=== PATIENT | male | born 1960 | race Caucasian/White ===

== ENCOUNTER 2017-08-18 18:04 | Emergency (ER) | payer OTHER ==
--- NOTE | ~2017-08-18 | ER ---
PATIENT'S NAME: QUYNH ABEL [facility] AGE: 57 Y [address] ROOM: [place] [id number] LOCATION: ED ADMIT DATE: 08/18/2017 ER/Outpatient Report DISCHARGE DATE: 08/18/2017 FAMILY PHYSICIAN: Michael Ramirez MD ATTENDING PHYSICIAN: Hafsa Noonan HISTORY OF PRESENT ILLNESS: This is a 57-year-old male who presents today with chief complaint of left lower leg pain. The patient says he has a history of blood clots in the lower extremities for which he has been on chronic anticoagulation. He initially told me Coumadin, but then we found out it was actually Xarelto. He is not very compliant with medications though and says sometimes he forgets to take them. He says that these blood clots were discovered maybe 10 years ago he thinks, but he has not gone back to get repeat ultrasounds. He denies any fever or chills. States that he just felt more tired today. His reports that he had some shallow breathing earlier, so that is why they were concerned. PAST MEDICAL HISTORY: Includes right leg ulcer currently wrapped, CHF, vhk-iqevqoa-mhrhmwlvy diabetes, history of DVT, hypercholesteremia. SURGICAL HISTORY: Right lower leg surgery. SOCIAL HISTORY: He does not smoke, drink, or use any drugs. MEDS: Please see med list. ALLERGIES: PLEASE SEE MED LIST. REVIEW OF SYSTEMS: Reviewed by me and negative with exception of those discussed in the HPI. PHYSICAL EXAMINATION: VITAL SIGNS: The patient is 6 feet tall, he weighs 152.7 kilos, blood pressure 141/70, heart rate 83, respiratory rate 18, temperature is 100.5, sats are 94% on room air. GENERAL: The patient does not appear in any acute distress. He is alert and interactive. He is speaking in full sentences. He does not appear lethargic to me. He does feel warm to touch. He does not appear acutely ill. HEENT: His pupils are equal and reactive to light. He has no facial PATIENT'S NAME: QUYNH ABEL [facility] AGE: 57 Y [address] ROOM: [place], [place] [address] LOCATION: ED ADMIT DATE: 08/18/2017 ER/Outpatient Report DISCHARGE DATE: 08/18/2017 FAMILY PHYSICIAN: Michael Ramirez MD ATTENDING PHYSICIAN: Hafsa Noonan tenderness. He has intact sensation of V1, V2, and V3 of the face. He has no lymphadenopathy. He has no C-spine tenderness. HEART: His heart rate is regular rate and rhythm. At this time, he is not tachycardic. He is mildly hypertensive at this time to 141/70 with good cap refill. LUNGS: His lung sounds are clear. He has no labored breathing, tachypnea, or accessory muscle use. ABDOMEN: Soft, nontender, nondistended. He is morbidly obese, but no ecchymoses. No epigastric tenderness. No right upper quadrant tenderness. No right lower quadrant tenderness or left lower quadrant tenderness. EXTREMITIES: He has chronic venous stasis changes on both lower extremities. On the left leg where he has the pain, he does not have any calf tenderness when we measure that compared to the right, it is about the same. It is not acutely swollen. He has like maybe trace pedal edema. He does have an area of redness that is tender and kind of warm to touch. It is not raised though. He has negative Homans sign bilaterally. SKIN: Area of erythema on the back of the left calf as noted above that is mildly tender on palpation, but no fluctuance or abscess seen. NEURO: He is A and O x3. Strength bilateral upper extremities 5/5, lower extremities 5/5. Cranial nerves 2 through 12 are intact. He is A and O x4 and answers questions appropriately. GCS is 15. EMERGENCY ROOM COURSE: The concern would be for blood clots, DVT in his left lower extremity. We checked CBC, renal panel, CMP, lactic, procalcitonin, coags. These show a lactic of 1.4, not elevated. CBC shows white count 11.5, H and H 16.1/47.6, and platelets are 287. He has no bandemia. PTT is 28, PT is 11.7, INR is 1.11. Sodium is 132, potassium 4.1, chloride 89, CO2 of 24, anion gap 13.1, glucose is 221, BUN is 14, creatinine is 1.0, GFR is 83. CRP is 13.4. Procalcitonin is 0.08. We did a DVT study which shows on the left lower extremity he has a distal common femoral vein DVT, and on the right, he has a common femoral vein DVT. Given that he also had been complaining of shortness of breath and his oxygen is anywhere from 91-94%, we did a PE CT angio chest to rule out PE study. He has no pulmonary embolism. He does have a dilated ascending aorta without dissection, cholelithiasis, and he has heterogeneity of the right inferior thyroid not well seen. This was discussed with the patient. He has no PE at this time, but he has bilateral DVTs, but does state that he is noncompliant with his Xarelto. I discussed this with Dr. Lorena hong for his primary care doctor who is Dr. Ramirez. The patient encouraged to take the Xarelto as appropriate. He is currently being anticoagulated. Unknown if these clots were there before, if they are extension of it. In any case, he needs to follow up with Dr. Ramirez. He currently feels well. He does not have any abnormal vital signs or any other red flags on history and physical exam, so we will be sending him home. No oxygen requirement. PATIENT'S NAME: QUYNH ABEL [facility] AGE: 57 Y [address] ROOM: [place] [address] LOCATION: [facility] ADMIT DATE: 08/18/2017 ER/Outpatient Report DISCHARGE DATE: 08/18/2017 FAMILY PHYSICIAN: Michael Ramirez MD ATTENDING PHYSICIAN: Hafsa Noonan IMPRESSION: Left lower leg pain, deep venous thrombosis. HAFSA NOONAN MD CANatasha/modl /[id number] d: 08/19/17 0429 t: 08/21/17 0510, OUTPATIENT REPORT
--- NOTE | ~2017-08-18 | ENPV ---
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 There is sub-acute deep vein thrombosis in the left distal femoral vein(s). Calf veins not well visualized bilaterally cannot rule out small calf thrombus. Procedure Type of Study: Veins:Lower Extremities DVT Study, Lower Extremity Left. Indications for Study:Swelling. Appropriate Use Criteria:9 Patient Status:STAT. Study Location:ER. Technical Quality:Limited visualization due to body habitus. Velocities are measured in cm/s ; Diameters are measured in cm Right Lower Extremities DVT Study Measurements Right 2D and Doppler Measurements + + + + +------+------+ + !Location !Visualized!Compressibility!Thrombosis!Signal!Reflux!Reflux ! ! ! ! ! ! ! !(sec) ! + + + + +------+------+ + !GSV Thigh !Yes !Yes !None ! ! ! ! + + + + +------+------+ + !Common !Yes !Partial !Sub-acute ! ! ! ! !Femoral ! ! ! ! ! ! ! + + + + +------+------+ + !Prox !Yes !Yes !None ! ! ! ! !Femoral ! ! ! ! ! ! ! + + + + +------+------+ + !Dist !Yes !Yes !None ! ! ! ! !Femoral ! ! ! ! ! ! ! + + + + +------+------+ + !Popliteal !Yes !Yes !None ! ! ! ! + + + + +------+------+ + !PTV !Yes !Yes !None ! ! ! ! + + + + +------+------+ + !Peroneal !Yes !Yes !None ! ! ! ! + + + + +------+------+ + Left Lower Extremities DVT Study Measurements Left 2D and Doppler Measurements + + + + +------+------+ + !Location !Visualized!Compressibility!Thrombosis!Signal!Reflux!Reflux ! ! ! ! ! ! ! !(sec) ! + + + + +------+------+ + !GSV Thigh !Yes !Yes !None ! ! ! ! + + + + +------+------+ + !Common !Yes !Yes !None ! ! ! ! !Femoral ! ! ! ! ! ! ! + + + + +------+------+ + !Prox !Yes !Yes !None ! ! ! ! !Femoral ! ! ! ! ! ! ! + + + + +------+------+ + !Mid Femoral!Yes !Yes !None ! ! ! ! + + + + +------+------+ + !Dist !Yes !Partial !Sub-acute ! ! ! ! !Femoral ! ! ! ! ! ! ! + + + + +------+------+ + !Popliteal !Yes !Yes !None ! ! ! ! + + + + +------+------+ + !Gastroc !Yes ! ! ! ! ! ! + + + + +------+------+ + !PTV !Yes !Yes !None ! ! ! ! + + + + +------+------+ + !Peroneal !Yes !Yes !None ! ! ! ! + + + + +------+------+ + Signature dtt: SARAH GUARDADO dtd: 08/18/17 1914 Physician Self Edit
[~2017-08-18 18:04] MED LIST: ATORVASTATIN CA10 MG; COUMADIN ** IA5 MG; GLUCOPHAGE1000 MG; INVOKANA300 MG; LANTUS (IN100 UNIT/M; METOPROLOL SUCC25 MG; NOVOLOG100 UNIT/M; PRINIVIL (ZESTRI5 MG; XARELTO10 MG; XARELTO20 MG
[2017-08-18 19:03] LABS: BASOPHIL # 0.1 K/uL (0.0-0.2); BASOPHIL % 0.4 %; EOSINOPHIL % 0.3 %; HEMATOCRIT 47.9 % (37.0-53.0); HEMOGLOBIN 16.1 g/dL (12.0-17.0); IMMATURE GRANULOCYTE # 0.1 K/uL (0.0-0.3); IMMATURE GRANULOCYTE % 0.5 %; LYMPHOCYTE # 1.5 K/uL (0.8-4.0); LYMPHOCYTE % 12.8 %; MCHC 33.6 gm/dL (32.0-36.5); MCV 83.2 fl (83.0-98.0); MONOCYTE # 1.1 K/uL (0.0-1.0); MONOCYTE % 9.6 %; MPV 10.5 fl (9.4-12.4); NEUTROPHIL # (ANC) 8.7 K/uL (1.4-9.0); NEUTROPHIL % 76.4 %; NRBC % 0 /100WBC (0-0.00); PLATELET COUNT 287 K/uL (150-450); RDW-CV 13.2 % (11.9-14.6); WBC 11.5 K/uL (4.0-11.0)
[2017-08-18 19:07] LABS: RBC 5.76 M/uL (4.00-6.00)
[2017-08-18 19:14] LABS: INR - (THERAPEUTIC) 1.11 (0.92-1.07); PROTIME 11.7 SECONDS (9.8-11.4); PTT 28 SECONDS (25-32)
[2017-08-18 19:21] LABS: ALBUMIN 3.4 gm/dL (3.5-5.0); ANION GAP 13.1 (10.0-19.0); PHOSPHORUS 3.9 mg/dL (2.5-4.9); POTASSIUM 4.1 mMol/L (3.7-5.1)
== END 2017-08-18 21:31 | disposition disaster alternative care site (69) ==
LOC: GMED 18:04
PROVIDERS: Emergency Medicine
DX: I82.412 Acute embolism and thrombosis of left femoral vein (principal); I82.4Z2 Acute embolism and thrombosis of unspecified deep veins of left distal lower extremity; I82.411 Acute embolism and thrombosis of right femoral vein; I50.9 Heart failure, unspecified; E11.9 Type 2 diabetes mellitus without complications; E78.00 Pure hypercholesterolemia, unspecified; Z98.890 Other specified postprocedural states; Z88.1 Allergy status to other antibiotic agents; Z79.899 Other long term (current) drug therapy; Z79.01 Long term (current) use of anticoagulants; Z79.4 Long term (current) use of insulin
CPT/HCPCS: C1751; Q9967